=== PATIENT | male | born 1965 ===

== ENCOUNTER → 2020-12-26 08:00 | Outpatient (CLI) | payer OTHER ==
[~2020-12-26 08:00] MED LIST: CLARIT PO; CYMBALTA PO; DOXAZOSIN MESYLA1 MG PO; SIMVAST PO; VITAMIN C PO; VITAMIN D; ZYLOPRIM100 M1 PO
== END | disposition home or self-care (01) ==
LOC: ADM 12-21 07:00 → CIR.AMB 07:00 → EDSTATUS 07:00 → LAB 08:00 → U 08:00 → CIR.AMB 10:00
PROVIDERS: ATTEND Surgery Surgery of the Hand
DX: M67.844 Other specified disorders of tendon, left hand (principal); Z20.822 Contact with and (suspected) exposure to COVID-19